=== PATIENT | male | born 1980 | race Caucasian/White ===

== ENCOUNTER 2018-05-04 22:50 | Observation (INO) | payer MEDICARE, MEDICAID ==
--- NOTE | 2018-05-04 23:25 | EDM.PDOC ---
ED HPI GENERAL MEDICAL PROBLEM - General Chief Complaint: General Stated Complaint: chest pain Time Seen by Provider: 05/04/18 23:25 Source of Information: Reports: Patient History Limitations: Reports: No Limitations - History of Present Illness INITIAL COMMENTS - FREE TEXT/NARRATIVE: Jasen is a 37 year old male who presents to the clinic with c/o mid sternal chest pain. He reports he was exerting himself during sexual intercourse and the pain came on. He reports for the past 3-4 years he has had similar episodes of pain with exertion. He describes the pain as "like hes dying." Does have associated shortness of breath. Denies any dizziness, N/V/D, diaphoresis. Reports his "heart shakes." He reports that even with the slightest exertion he gets short of breath and fatigued and then has this chest pain. He reports he has been trying to avoid coming to the doctor and so he takes chewable aspirin when gets this. He reports normally over the past few years, he takes 4 chewable baby aspirin and the pain goes away. He reports that tonight he took 4 aspirin, and the pain persisted, so he too 5 more. Additionally, he reports he takes 800 mg ibuprofen every 6 hours for his chronic back pain. He denies any history of GERD. Does report he has anxiety, but this feels different. He does report he had a Cardiolyte stress test in the past prior to surgery. He reports they wanted him to follow up but he never did. He reports he normally doctors with Dr. Gonzalez in [place]. He reports he has been told in the past that his blood pressure has been elevated. Onset: Today, Sudden Onset Date: 05/05/18 Onset Time: 22:00 Duration: Resolved Prior to Arrival Location: Reports: Chest Quality: Reports: Ache, Pressure, Sharp Severity: Severe Improves with: Reports: Medication Context: Reports: Activity Associated Symptoms: Reports: Chest Pain, Shortness of Breath. Denies: Confusion, Cough, cough w sputum, Diaphoresis, Fever/Chills, Headaches, Loss of Appetite, Malaise, Nausea/Vomiting, Rash, Seizure, Syncope, Weakness Treatments BROKER: Reports: Aspirin Middle Chest Pain Score (Numeric/FACES): 4 - Related Data Allergies Allergy/AdvReac Type Severity Reaction Status Date / Time No Known Allergies Allergy Verified 05/04/18 22:55 Home Meds: Home Meds ALPRAZolam [Alprazolam] 1 mg PO QID 05/04/18 [History] Social & Family History - Tobacco Use Smoking Status *Q: Current Every Day Smoker ED ROS GENERAL - Review of Systems Review Of Systems: ROS reveals no pertinent complaints other than HPI. ED EXAM, GENERAL - Physical Exam Exam: See Below Exam Limited By: No Limitations General Appearance: Alert, WD/WN, No Apparent Distress Eye Exam: Bilateral Eye: EOMI, PERRL Head: Atraumatic, Normocephalic Neck: Normal Inspection, Supple, Non-Tender, Full Range of Motion Respiratory/Chest: No Respiratory Distress, Lungs Clear, Normal Breath Sounds, No Accessory Muscle Use, Chest Non-Tender Cardiovascular: Normal Peripheral Pulses, Regular Rate, Rhythm, No Edema, No Gallop, No JVD, No Murmur, No Rub GI/Abdominal: Normal Bowel Sounds, Soft, Non-Tender, No Organomegaly, No Distention, No Abnormal Bruit, No Mass Extremities: Normal Inspection, Normal Range of Motion, Non-Tender, Normal Capillary Refill, No Pedal Edema Neurological: Alert, Oriented, CN II-XII Intact, Normal Cognition, Normal Gait, Normal Reflexes, No Motor/Sensory Deficits Psychiatric: Anxious Skin Exam: Warm, Dry, Intact, Normal Color, No Rash Lymphatic: No Adenopathy Course - Vital Signs Last Recorded V/S: Last Vital Signs Temp 97.9 F 05/04/18 23:25 Pulse 100 05/04/18 23:36 Resp 16 05/04/18 23:36 BP 149/100 H 05/04/18 23:36 Pulse Ox 98 05/04/18 23:36 - Orders/Labs/Meds Orders: Active Orders 24 hr Category Date Time Status Chest 2V [CR] Stat Exams 05/04/18 23:06 Taken DRUG SCREEN URINE BIORAD [URCHEM] Stat Lab 05/04/18 23:44 Ordered Labs: Laboratory Tests 05/04/18 05/04/18 05/04/18 Range/Units 23:18 23:18 23:18 WBC 7.8 (5.0-10.0) 10^3/uL RBC 4.74 (4.50-6.00) 10^6/uL Hgb 15.9 (14.0-18.0) g/dL Hct 46.4 (40.0-54.0) % MCV 97.9 H (82.0-94.0) fL MCH 33.5 H (27.0-32.0) pg MCHC 34.3 (33.0-38.0) g/dL RDW Coeff of Coty 14.3 (11.0-15.0) % Plt Count 172 (150-400) 10^3/uL Neut % (Auto) 36.4 (35-85) % Lymph % (Auto) 51.1 (10-55) % [place] % (Auto) 9.1 (0-16) % Eos % (Auto) 2.9 (0-5) % Baso % (Auto) 0.5 (0-3) % Neut # (Auto) 2.84 (1.80-7.00) 10^3/uL Lymph # (Auto) 3.99 (1.00-4.80) 10^3/uL [place] # (Auto) 0.71 (0.00-0.80) 10^3/uL Eos # (Auto) 0.23 (0.00-0.45) 10^3/uL Baso # (Auto) 0.04 10^3/uL PT 9.7 (9.7-12.3) SEC INR 0.93 (0.92-1.18) APTT 25.8 (23.2-32.3) SEC Sodium 143 (136-145) mEq/L Potassium 4.0 (3.5-5.0) mEq/L Chloride 103 (98-106) mEq/L Carbon Dioxide 30 (21-32) mmol/L BUN 12 (7-18) mg/dL Creatinine 0.9 (0.7-1.3) mg/dL Est Cr Clr Drug Dosing 125.74 mL/min Estimated GFR (MDRD) > 60 (>=60) mL/min Glucose 90 (75-99) mg/dL Calcium 9.0 (8.4-10.1) mg/dL Lactate Dehydrogenase 211 H (100-190) U/L Creatine Kinase 376 H (35-232) U/L Troponin I < 0.017 (0.00-0.06) ng/mL Meds: Medications Discontinued Medications Generic Name Dose Route Start Last Admin Trade Name Freq PRN Reason Stop Dose Admin Nitroglycerin 0.4 mg 05/04/18 23:34 05/04/18 23:36 Nitrostat SL 05/04/18 23:35 0.4 mg ONETIME ONE Administration Departure - Departure Time of Disposition: 00:20 Disposition: Refer to Observation Condition: Good Clinical Impression: Unstable angina, Atypical chest pain, Hypertension - Discharge Information *PRESCRIPTION DRUG MONITORING PROGRAM REVIEWED*: Not Applicable *COPY OF PRESCRIPTION DRUG MONITORING REPORT IN PATIENT AL[place]INA: Not Applicable Forms: ED Department Discharge - Problem List & Annotations (1) Unstable angina SNOMED Code(s): 6703459, 573376610 Code(s): I20.0 - UNSTABLE ANGINA Status: Acute Priority: High (2) Atypical chest pain SNOMED Code(s): 500990185 Code(s): R07.89 - OTHER CHEST PAIN Status: Acute Priority: High (3) Hypertension SNOMED Code(s): 58385223 Code(s): I10 - ESSENTIAL (PRIMARY) HYPERTENSION Status: Acute Qualifiers: Hypertension type: essential hypertension Qualified Code(s): I10 - Essential (primary) hypertension - Problem List Review Problem List Initiated/Reviewed/Updated: Yes - My Orders Last 24 Hours: My Active Orders 05/04/18 23:06 Chest 2V [CR] Stat 05/04/18 23:44 DRUG SCREEN URINE BIORAD [URCHEM] Stat - Assessment/Plan Admission H&P: Please use this note as an admission H&P Last 24 Hours: My Active Orders 05/04/18 23:06 Chest 2V [CR] Stat 05/04/18 23:44 DRUG SCREEN URINE BIORAD [URCHEM] Stat Assessment:: Unstable Angina Atypical chest pain Hypertension Current everyday smoker Plan: Please see nurses note for PMH, PSH, SH, and FH. LDH and CK elevated. Troponin normal. Nicotine patch Continuous cardiac monitoring Close monitoring of blood pressure Refer to observation for repeat cardiac enzymes and EKG. Will check lipid panel in am as well.
[2018-05-04] MEDS ORDERED: Nitroglycerin 0.4 MG Tab.SL SL ONE (23:34)
[2018-05-04 23:37] LABS: CHLORIDE,CL 103 mEq/L (98-106); SODIUM,NA 143 mEq/L (136-145)
[2018-05-05] MEDS ORDERED: Enoxaparin 40 MG/0.4 ML Syringe SUBCUT SCH (00:36)
[2018-05-05] MEDS ORDERED: Temazepam 15 MG Cap PO PRN (00:36)
[2018-05-05] MEDS ORDERED: Acetaminophen 500 MG Tab PO PRN (00:36)
[2018-05-05] MEDS ORDERED: Magnesium Hydroxide 400 MG/5 ML Susp 30 ML Cup PO PRN (00:36)
[2018-05-05] MEDS ORDERED: Sodium Chloride 0.9% 1,000 ML IV SCH (00:36)
[2018-05-05] MEDS ORDERED: Sodium Chloride 0.9% 10 ML Syringe FLUSH PRN (00:36)
[2018-05-05] MEDS ORDERED: Ondansetron 4 MG/2 ML SDV IV PRN (00:36)
[2018-05-05] MEDS ORDERED: Albuterol/Ipratropium 3.0-0.5 MG/3 ML Neb Soln NEB PRN (00:36)
[2018-05-05] MEDS: Nicotine 14 MG/24 Hr Patch TRDERM SCH ×2 (02:04→10:58)
[2018-05-05] MEDS ORDERED: ALPRAZolam 0.25 MG Tab PO PRN (04:38)
[2018-05-05] MEDS: Ibuprofen 200 MG Tab PO PRN ×2 (04:59→10:56)
[2018-05-05] MEDS ORDERED: ALPRAZolam 0.5 MG Tab.DIS (ODT) PO SCH (08:00)
--- NOTE | 2018-05-05 11:14 | PCM.DCSUM1 ---
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 He had reported he was having sexual relations when his chest pain came on. He reports it occurs anytime he exerts himself. He reports he gets SOB very easily with exertion as well. This had reportedly been occurring for the past 3-4 year per patient report. He reported he had never discussed this with his PCP as aspirin normally takes away the pain. He reports he took 4 aspirin, pain did not improve , so he took 5 more. Lab work was completed. EKR revealed NSR. Troponin was normal, but CK and LDH were slightly elevated. Patient was admitted to observation for chest pain rule out. Repeat cardiac enzymes were stable. Troponin remained normal. Repeat EKG showed no changes. Patient is discharged home and instructed to follow up with PCP this week regarding history of chest pain, elevated blood pressure, as well as his use of ibuprofen and aspirin, as I suspect patient's chest pain may be somewhat related to gastritis/GERD. He is discharged home in satisfactory condition. - Discharge Data Discharge Date: 05/05/18 Discharge Disposition: Home, Self-Care 01 Condition: Fair - Discharge Diagnosis/Problem(s) (1) Unstable angina SNOMED Code(s): 3553550, 703429914 ICD Code: I20.0 - UNSTABLE ANGINA Status: Acute Priority: High (2) Atypical chest pain SNOMED Code(s): 868277319 ICD Code: R07.89 - OTHER CHEST PAIN Status: Acute Priority: High (3) Hypertension SNOMED Code(s): 49858992 ICD Code: I10 - ESSENTIAL (PRIMARY) HYPERTENSION Status: Acute Qualifiers: Hypertension type: essential hypertension Qualified Code(s): I10 - Essential (primary) hypertension - Patient Instructions Diet: Low Sodium Activity: As Tolerated, No Strenuous Activities - Discharge Plan *PRESCRIPTION DRUG MONITORING PROGRAM REVIEWED*: Not Applicable *COPY OF PRESCRIPTION DRUG MONITORING REPORT IN PATIENT [place]INA: Not Applicable Home Medications: Home Meds ALPRAZolam [Alprazolam] 1 mg PO QID 05/04/18 [History] Patient Handouts: Hypertension, [id number], Angina Pectoris, [id number] Forms: ED Department Discharge Referrals: Clive Ace MD [Physician] - - General Info Date of Service: 05/05/18 Admission Dx/Problem (Free Text: Atypical Chest Pain ? Unstable Angina Subjective Update: Patient reports he is feeling fine this morning. Does not have any ongoing chest pain. Blood pressure has improved some throughout night. He denies any complaints this morning. Functional Status: Reports: Pain Controlled, Tolerating Diet, Ambulating, Urinating. Denies: New Symptoms - Review of Systems General: Reports: No Symptoms HEENT: Reports: No Symptoms Pulmonary: Reports: No Symptoms Cardiovascular: Reports: Dyspnea on Exertion. Denies: Chest Pain, Palpitations , Edema, Lightheadedness Gastrointestinal: Reports: No Symptoms Genitourinary: Reports: No Symptoms Musculoskeletal: Reports: No Symptoms Skin: Reports: No Symptoms Neurological: Reports: No Symptoms Psychiatric: Reports: No Symptoms - Patient Data Vitals - Most Recent: Last Vital Signs Temp 98.0 F 05/05/18 07:15 Pulse 100 05/05/18 07:15 Resp 18 05/05/18 07:15 BP 147/93 H 05/05/18 07:15 Pulse Ox 100 05/05/18 07:15 Weight - Most Recent: 205 lb 1.6 oz Lab Results - Last 24 hrs: Laboratory Results - last 24 hr 05/04/18 05/04/18 05/04/18 Range/Units 23:18 23:18 23:18 WBC 7.8 (5.0-10.0) 10^3/uL RBC 4.74 (4.50-6.00) 10^6/uL Hgb 15.9 (14.0-18.0) g/dL Hct 46.4 (40.0-54.0) % MCV 97.9 H (82.0-94.0) fL MCH 33.5 H (27.0-32.0) pg MCHC 34.3 (33.0-38.0) g/dL RDW Coeff of Coty 14.3 (11.0-15.0) % Plt Count 172 (150-400) 10^3/uL Neut % (Auto) 36.4 (35-85) % Lymph % (Auto) 51.1 (10-55) % [place] % (Auto) 9.1 (0-16) % Eos % (Auto) 2.9 (0-5) % Baso % (Auto) 0.5 (0-3) % Neut # (Auto) 2.84 (1.80-7.00) 10^3/uL Lymph # (Auto) 3.99 (1.00-4.80) 10^3/uL [place] # (Auto) 0.71 (0.00-0.80) 10^3/uL Eos # (Auto) 0.23 (0.00-0.45) 10^3/uL Baso # (Auto) 0.04 10^3/uL PT 9.7 (9.7-12.3) SEC INR 0.93 (0.92-1.18) APTT 25.8 (23.2-32.3) SEC Sodium 143 (136-145) mEq/L Potassium 4.0 (3.5-5.0) mEq/L Chloride 103 (98-106) mEq/L Carbon Dioxide 30 (21-32) mmol/L BUN 12 (7-18) mg/dL Creatinine 0.9 (0.7-1.3) mg/dL Est Cr Clr Drug Dosing 125.74 mL/min Estimated GFR (MDRD) > 60 (>=60) mL/min Glucose 90 (75-99) mg/dL Calcium 9.0 (8.4-10.1) mg/dL Lactate Dehydrogenase 211 H (100-190) U/L Creatine Kinase 376 H (35-232) U/L Troponin I < 0.017 (0.00-0.06) ng/mL Triglycerides (30-150) mg/dL Cholesterol (0-199) mg/dL LDL Cholesterol, Calc (0-99) mg/dL HDL Cholesterol (60-90) mg/dL Urine Opiates Screen (NEGATIVE) Ur Oxycodone Screen (NEGATIVE) Urine Methadone Screen (NEGATIVE) Ur Barbiturates Screen (NEGATIVE) U Tricyclic Antidepress (NEGATIVE) Ur Phencyclidine Scrn (NEGATIVE) Ur Amphetamine Screen (NEGATIVE) U Methamphetamines Scrn (NEGATIVE) Urine MDMA Screen (NEGATIVE) U Benzodiazepines Scrn (NEGATIVE) Urine Cocaine Screen (NEGATIVE) U Marijuana (THC) Screen (NEGATIVE) 05/04/18 05/05/18 05/05/18 Range/Units 23:44 07:35 07:35 WBC (5.0-10.0) 10^3/uL RBC (4.50-6.00) 10^6/uL Hgb (14.0-18.0) g/dL Hct (40.0-54.0) % MCV (82.0-94.0) fL MCH (27.0-32.0) pg MCHC (33.0-38.0) g/dL RDW Coeff of [place] (11.0-15.0) % Plt Count (150-400) 10^3/uL Neut % (Auto) (35-85) % Lymph % (Auto) (10-55) % [place] % (Auto) (0-16) % Eos % (Auto) (0-5) % Baso % (Auto) (0-3) % Neut # (Auto) (1.80-7.00) 10^3/uL Lymph # (Auto) (1.00-4.80) 10^3/uL [place] # (Auto) (0.00-0.80) 10^3/uL Eos # (Auto) (0.00-0.45) 10^3/uL Baso # (Auto) 10^3/uL PT (9.7-12.3) SEC INR (0.92-1.18) APTT (23.2-32.3) SEC Sodium (136-145) mEq/L Potassium (3.5-5.0) mEq/L Chloride (98-106) mEq/L Carbon Dioxide (21-32) mmol/L BUN (7-18) mg/dL Creatinine (0.7-1.3) mg/dL Est Cr Clr Drug Dosing mL/min Estimated GFR (MDRD) (>=60) mL/min Glucose (75-99) mg/dL Calcium (8.4-10.1) mg/dL Lactate Dehydrogenase 198 H (100-190) U/L Creatine Kinase 298 H (35-232) U/L Troponin I < 0.017 (0.00-0.06) ng/mL Triglycerides 231 H (30-150) mg/dL Cholesterol 169 (0-199) mg/dL LDL Cholesterol, Calc 52 (0-99) mg/dL HDL Cholesterol 71 (60-90) mg/dL Urine Opiates Screen Negative (NEGATIVE) Ur Oxycodone Screen Negative (NEGATIVE) Urine Methadone Screen Negative (NEGATIVE) Ur Barbiturates Screen Negative (NEGATIVE) U Tricyclic Antidepress Negative (NEGATIVE) Ur Phencyclidine Scrn Negative (NEGATIVE) Ur Amphetamine Screen Negative (NEGATIVE) U Methamphetamines Scrn Negative (NEGATIVE) Urine MDMA Screen Negative (NEGATIVE) U Benzodiazepines Scrn Positive H (NEGATIVE) Urine Cocaine Screen Negative (NEGATIVE) U Marijuana (THC) Screen Negative (NEGATIVE) Med Orders - Current: Current Medications Acetaminophen (Tylenol Extra Strength) 1,000 mg PO Q6H PRN PRN Reason: Pain (Mild 1-3)/fever Albuterol/Ipratropium (Duoneb 3.0-0.5 Mg/3 Ml) 3 ml NEB Q4H PRN PRN Reason: Shortness Of Breath/wheezing Alprazolam (Xanax) 1 mg PO QID PRN PRN Reason: Anxiety Enoxaparin Sodium (Lovenox) 40 mg SUBCUT Q24H [facility] Last Admin: 05/05/18 02:05 Dose: 40 mg Ibuprofen (Motrin) 600 mg PO Q6H PRN PRN Reason: Pain (mild 1-3) Last Admin: 05/05/18 10:56 Dose: 600 mg Magnesium Hydroxide (Milk Of Magnesia) 30 ml PO Q12H PRN PRN Reason: Constipation Nicotine (Habitrol) 14 mg TRDERM DAILY [facility] Last Admin: 05/05/18 10:58 Dose: 14 mg Ondansetron HCl (Zofran) 4 mg IV Q6H PRN PRN Reason: Nausea/Vomiting Sodium Chloride (Saline Flush) 10 ml FLUSH ASDIRECTED PRN PRN Reason: Keep Vein Open Temazepam (Restoril) 15 mg PO BEDTIME PRN PRN Reason: Sleep Discontinued Medications Sodium Chloride (Normal Saline) 1,000 mls @ 100 mls/hr IV ASDIRECTED [facility] Stop: 05/05/18 10:35 Last Admin: 05/05/18 02:05 Dose: 100 mls/hr Nitroglycerin (Nitrostat) 0.4 mg SL ONETIME ONE Stop: 05/04/18 23:35 Last Admin: 05/04/18 23:36 Dose: 0.4 mg - Exam Quality Assessment: Reports: DVT Prophylaxis General: Reports: Alert, Oriented, No Acute Distress Neck: Reports: Supple Lungs: Reports: Clear to Auscultation Cardiovascular: Reports: Regular Rate, Regular Rhythm, No Murmurs GI/Abdominal Exam: Normal Bowel Sounds, Soft, Non-Tender, No Organomegaly, No Distention, No Abnormal Bruit, No Mass, Pelvis Stable Back Exam: Reports: Normal Inspection, Full Range of Motion Extremities: Normal Inspection, Normal Range of Motion, Non-Tender, No Pedal Edema, Normal Capillary Refill Neurological: Reports: No New Focal Deficit Psy/Mental Status: Reports: Alert, Normal Affect, Normal Mood
== END 2018-05-05 11:40 | disposition home or self-care (01) ==
LOC: CC.ED 22:50 → CC.MS 05-05 00:07 → UNDOADMOB 05-05 00:07 → CC.MS 05-05 00:30 → UNDOADMOB 05-05 00:30 → UNDODISOB 05-05 11:40
PROVIDERS: ADMIT Nurse Practitioner Family; ATTEND Family Medicine
DX: I20.0 Unstable angina (principal); I10 Essential (primary) hypertension; F17.200 Nicotine dependence, unspecified, uncomplicated; Z79.899 Other long term (current) drug therapy
CPT/HCPCS: 36415 ×2; 71046; 80048; 80061; 80305; 82550 ×2; 83615 ×2; 84484 ×2; 85025; 85610; 85730; 93005 ×2; 99285; A9270 ×5; J1650; J7030; 96372; G0378